=== PATIENT | male | born 1990 | race Caucasian/White ===

== ENCOUNTER 2021-05-10 09:31 | Emergency (ER) | payer MEDICAID ==
[~2021-05-10] VITALS: Ht 175.3 cm; Wt 94.3 kg
[2021-05-10 10:30] VITALS: BP 121/82
[2021-05-10] MEDS ORDERED: ibuprofen tablet 400 MG TABLET PO ONE (11:35)
== END 2021-05-10 11:35 | disposition home or self-care (01) ==
LOC: ER 09:31
DX: U07.1 COVID-19 (principal)
CPT/HCPCS: 87635; 99283; C9803

== ENCOUNTER 2023-10-17 10:04 | Emergency (ER) | payer MEDICAID ==
[2023-10-17 14:17] LABS: BASOPHILS # (AUTO) 0.1 X10'3 (0-0.2); EOSINOPHILS # (AUTO) 0.2 X10'3 (0-0.9); EOSINOPHILS % (AUTO) 1.3 % (0-6); NEUTROPHILS # (AUTO) 4.5 X10'3 (1.8-7.7); RED CELL DISTRIBUTION WIDTH 13.4 % (11.5-14.5)
[2023-10-17 14:20] LABS: BASOPHILS % (AUTO) 0.8 % (0-1); HEMATOCRIT 43.7 % (42.0-52.0); HEMOGLOBIN 14.7 g/dl (14.0-17.9); LYMPHOCYTES # (AUTO) 8.5 X10'3 (1.1-4.8); LYMPHOCYTES % (AUTO) 58.7 % (21-51); MEAN CORPUSCULAR HEMOGLOBIN 30.4 PG (27.0-31.0); MEAN CORPUSCULAR HGB CONC 33.6 g/dL (33.0-36.5); MEAN CORPUSCULAR VOLUME 90.3 FL (78-98); MEAN PLATELET VOLUME 7.3 FL (7.4-10.4); MONOCYTES # (AUTO) 1.2 X10'3 (0-0.9); NEUTROPHILS % (AUTO) 31.2 % (42-75); PLATELET COUNT 292 X10'3 (140-440); RED BLOOD COUNT 4.84 X10'6 (4.70-6.10); WHITE BLOOD COUNT 14.5 X10'3 (4.5-11.0)
[2023-10-17 14:39] LABS: ALANINE AMINOTRANSFERASE 235 U/L (12-78); ALBUMIN 3.6 G/DL (3.4-5.0); ALBUMIN/GLOBULIN RATIO 0.8 (1.1-1.5); ALKALINE PHOSPHATASE 191 IU/L (46-116); ANION GAP 7 (8-16); ASPARTATE AMINO TRANSFERASE 113 U/L (10-37); BILIRUBIN,TOTAL 0.6 MG/DL (0.1-1.0); BLOOD UREA NITROGEN 10 MG/DL (7-18); BUN/CREATININE RATIO 10.1 (10.0-20.0); CALCIUM 8.8 MG/DL (8.5-10.1); CHLORIDE 99 MMOL/L (99-107); CREATININE 0.99 MG/DL (0.60-1.10); POTASSIUM 3.6 MMOL/L (3.5-5.1); SODIUM 134 MMOL/L (135-145); TOTAL CARBON DIOXIDE 27.9 MMOL/L (24-32); TOTAL PROTEIN 8.4 G/DL (6.4-8.2); eGFR 87 ML/MIN
[2023-10-17 14:41] LABS: GLUCOSE 99 MG/DL (70-104)
[2023-10-17 15:25] LABS: TOTAL CELLS COUNTED 100
[2023-10-17 15:26] LABS: PLATELET ESTIMATE NORMAL
[2023-10-17 15:38] LABS: MONOTEST NEGATIVE (Neg)
[2023-10-17] MEDS ORDERED: iohexol 300mg/ml 100ml inj. ONE (16:13)
[2023-10-17 16:55] LABS: BILIRUBIN,URINE NEGATIVE (Neg); CLARITY,URINE SLIGHTLY CLOUDY (Clear); GLUCOSE, URINE NEGATIVE (Neg); KETONES,URINE 15 mg/dl (Neg); LEUKOCYTE ESTERASE ,URINE NEGATIVE (Neg); NITRITES, URINE NEGATIVE (Neg); OCCULT BLOOD,URINE NEGATIVE (Neg); PROTEIN,URINE NEGATIVE (Neg); UROBILINOGEN,URINE 0.2 E.U/dL (0.2-1.0)
[2023-10-17 16:57] LABS: COLOR,URINE DARK YELLOW (Yellow); UA COLLECTION TYPE CLN CATCH MIDSTREAM
[2023-10-17 17:11] LABS: BACTERIA,URINE FEW /HPF (Neg); HYALINE CASTS 0-3 /LPF (NEGATIVE); MUCUS STRANDS MANY /LPF (Neg); RBC,URINE NONE SEEN /HPF (0-2); SQUAMOUS EPITHELIAL CELL,UR FEW /LPF (FEW); WBC,URINE 0-4 /HPF (0-4)
[2023-10-17 18:14] LABS: URINE AMPHETAMINE SCREEN NEGATIVE (Neg); URINE BARBITUATE SCREEN NEGATIVE (Neg); URINE BENZODIAZEPINES SCREEN NEGATIVE (Neg); URINE CANNABINOID SCREEN POSITIVE (Neg); URINE COCAINE SCREEN NEGATIVE (Neg); URINE METHADONE SCREEN NEGATIVE (Neg); URINE OPIATE SCREEN NEGATIVE (Neg); URINE PHENCYCLIDINE SCREEN NEGATIVE (Neg)
[2023-10-17 18:45] VITALS: BP 107/71; PULSE 66; RESP 18; TEMP 99.9; O2SAT 97
== END 2023-10-17 18:46 | disposition home or self-care (01) ==
LOC: ER 10:05
DX: R59.1 Generalized enlarged lymph nodes (principal); R61 Generalized hyperhidrosis
CPT/HCPCS: 36415; 71045; 71260; 74177; 80053; 80305; 81001; 83605; 84145; 84484; 85007; 85025; 86308; 99285; J3490; Q9967; 99284